=== PATIENT | male | born 1955 | race Caucasian/White ===

== ENCOUNTER 2023-10-10 18:27 | Emergency (ER) | payer OTHER ==
[2023-10-10] MEDS ORDERED: Acetaminophen 500 MG TAB ONE (18:54)
[2023-10-10] MEDS ORDERED: Boostrix 0.5 ML (Tdap) VIAL (>/=7 yrs of age) ONE (18:54)
[2023-10-10] MEDS ORDERED: Lidocaine 1%/Epinephrine 1:100K 10 ML VIAL ONE (19:12)
[2023-10-10] MEDS ORDERED: Sulfameth/Trimethoprim DS 800-160mg TAB ONE (19:36)
[2023-10-10] MEDS ORDERED: Triple Antibiotic Oint 1 GM Packet ONE (19:36)
== END 2023-10-10 20:28 | disposition home or self-care (01) ==
LOC: BURERS 18:27
DX: S51.012A Laceration without foreign body of left elbow, initial encounter (principal); Z23 Encounter for immunization; W19.XXXA Unspecified fall, initial encounter
CPT/HCPCS: 12032; 90471; 90715